=== PATIENT | female | born 1985 | race Caucasian/White ===

== ENCOUNTER 2017-09-02 13:06 | Emergency (ER) | payer SELFPAY ==
[2017-09-02 13:29] VITALS: BMI 30.8
--- NOTE | 2017-09-02 13:38 | OBHP ---
Datetime: 09/02/2017 13:29 IP Adm Impression: , intrauterine ; No Active Labor IP Chief Complaint Other: uriary frequency, dysuria and vulvar irirtation IP Adm Impression Other: uti; vulvar candidiasis IP Admit Plan: Discharge home Admit Comment, IP Provider: chief complaint-dysuria, urinary frequency, vulvar itching HPI 32 y/o at 27.2 wga , recently moved to [facility] 3 weeks ago, with c/o urinary frequency and dy suria since last night.Denies contractions, vaginal bleeidng or loss of fluid course- has not establsihed care in [place] PMH denies PSH denies OBGYN HX ; hx of ectopic Social hx denies tobacco,alcohol or illicit durg use Exam see exam section Abdomen +suprapubic tenderness; no cva tenderness bilaterally A/P 32 y/o at 27.2 wga with clinically UTI and superficial candidiasis -check UA -keflex and lotrsione establish care with obgyn michael Pelvic Type - PN: Adequate Extremities - PN: Normal Abdomen - PN: Normal Lungs - PN: Normal Heart - PN: Normal Neurologic - PN: Normal General - PN: Normal Contraction Comments Provider: occ Comments, ACOG Physical Exam: pelvic area-eyrthematous rash involving the labia vagina no lesions'cervix lose duterus gravid and no fundal tenderness noted Gestation - Est Wks by US: 27.2 IP Hx Assessment: The History has been Reviewed and is Current Vital Signs Provider: Reviewed Vital Signs Provider Details: temp 98.3F; pulse 80; bp 120/69 IP Chief Complaint: Other FHR Category Provider Fetus A: Category I Dilatation, Provider: 0 Effacement, Provider: 30 Station, Provider: -3 Genitourinary Exam: Abnormal DTRs - PN: Normal
[2017-09-02 14:12] LABS: RBC URINE 22 /hpf (0-3); URINE BACTERIA OCC (<OCC); URINE BILIRUBIN NEGATIVE (NEGATIVE); URINE BLOOD 2+ (NEGATIVE); URINE COLOR Yellow (YELLOW); URINE GLUCOSE (UA) NORMAL (Normal); URINE KETONE TRACE mg/dL (NEGATIVE); URINE LEUKOCYTE ESTERASE 2+ Leu/uL (Negative); URINE PROTEIN NEGATIVE (NEGATIVE); URINE UROBILINOGEN NORMAL mg/dL (0.2-1.0); WBC URINE 27 /hpf (0-5)
[2017-09-02 18:37] VITALS: BP 120/69; PULSE 80; RESP 18; TEMP 98.3
== END 2017-09-02 14:35 | disposition home or self-care (01) ==
LOC: C.EROB 13:06
DX: O23.42 Unspecified infection of urinary tract in pregnancy, second trimester (principal); O98.812 Other maternal infectious and parasitic diseases complicating pregnancy, second trimester; B37.3 Candidiasis of vulva and vagina; Z3A.27 27 weeks gestation of pregnancy

== ENCOUNTER 2017-11-21 14:31 | Emergency (ER) | payer SELFPAY ==
--- NOTE | 2017-11-21 15:40 | OBHP ---
Datetime: 11/21/2017 15:32 IP Adm Impression: Term, intrauterine ; No Active Labor IP Admit Plan: Discharge home Admit Comment, IP Provider: chief complaint-contractions HPI 32 y/o at 38.5 wga by LMP with c/o ctx since 1 2pm.Also noticed some blood mixed with muc us.Feels then recurrently.Katie is crampy in nature and she feels it is worsening Did not get prenatl care in [place] Had care in [facility] course -saw an OBGYN in [facility].LAST VISIT 3 MONTHS AGO PMH denies PSH rt oophorectomy OBGYN HX ; Hx of ectopic in jul 2016.was 4 weeks.had oophorectomy for the ectopic menrache age 11 no hx of sti or fibroids Social hx denies tobacco,alochol or illcit drug use Family hx father with pancreatic cancer, decased at age 52; mother -alive 62y/o, has diabtes Exam see exam section A/P 32 y/o at 38.5 wga in early labor.Patient appears comfortable. and maternal status r easusirng -patient discharged home -return if and when ctx get stronger, leaking of fluid, decreased movement, heavy bleeding h appens or any other problems arise Pelvic Type - PN: Adequate Extremities - PN: Normal Abdomen - PN: Normal Lungs - PN: Normal Heart - PN: Normal Neurologic - PN: Normal General - PN: Normal Contraction Comments Provider: irregular Gestation - Est Wks by US: 38.5 EGA AdmitDate IP: 38.5 Vital Signs Provider: Reviewed IP Chief Complaint: Uterine contractions FHR Category Provider Fetus A: Category I Dilatation, Provider: 1 Effacement, Provider: 50 Station, Provider: -2 Genitourinary Exam: Normal
[2017-11-21 20:03] VITALS: BP 139/87; PULSE 85; RESP 18; O2SAT 99
== END 2017-11-21 15:40 | disposition home or self-care (01) ==
LOC: C.EROB 14:31
DX: O47.1 False labor at or after 37 completed weeks of gestation (principal); Z3A.38 38 weeks gestation of pregnancy

== ENCOUNTER 2017-11-21 22:14 | Inpatient (IN) | payer MEDICAID ==
[2017-11-21] MEDS: Lactated Ringer's 1,000 ML IV SCH (22:20)
[2017-11-21] MEDS ORDERED: Penicillin G 5 Million Unit Vial IVPB ONE ×2 (22:25→23:08)
[2017-11-21 22:26] VITALS: BMI 31.6
--- NOTE | 2017-11-21 22:35 | OBHP ---
Datetime: 11/21/2017 22:29 IP Adm Impression: Term, intrauterine ; Active labor IP Admit Plan: Admit to unit; Initiate labor protocol Admit Comment, IP Provider: HPI chief complaint-contractions HPI 32 y/o at 38.5 wga by LMP with c/o ctx since 1 2pm.Patient was seen earlier and discharge d home.She states that ctx got stronger and hence she retirned. Did not get prenatl care in [place] Had care in [facility] course -saw an OBGYN in [facility]LAST VISIT 3 MONTHS AGO PMH denies PSH rt oophorectomy OBGYN HX ; Hx of ectopic in jul 2016.was 4 weeks.had oophorectomy for the ectopic menrache age 11 no hx of sti or fibroids Social hx denies tobacco,alochol or illcit drug use Family hx father with pancreatic cancer, decased at age 52; mother -alive 62y/o, has diabtes Exam see exam section A/P 32 y/o at 38.5 wga in labor. GBS unknown.no care in [place] -admit -see orders Pelvic Type - PN: Adequate Extremities - PN: Normal Abdomen - PN: Normal Back - PN: Normal Lungs - PN: Normal Heart - PN: Normal General - PN: Normal Weight - Estimated: 3200 Presentation-Admit: Vertex Contraction Comments Provider: every 2-3min Gestation - Est Wks by US: 38.0 IP Hx Assessment: The History has been Reviewed and is Current EGA AdmitDate IP: 38.5 Vital Signs Provider: Reviewed; Within Normal Limits IP Chief Complaint: Uterine contractions FHR Category Provider Fetus A: Category I Dilatation, Provider: 5 Effacement, Provider: 90 Station, Provider: -2 Genitourinary Exam: Normal DTRs - PN: Normal
--- NOTE | 2017-11-21 22:43 | OBADHP ---
Datetime: 11/21/2017 22:29 Admit Comment, IP Provider: HPI chief complaint-contractions HPI 32 y/o at 38.5 wga by LMP with c/o ctx since 1 2pm.Patient was seen earlier and discharge d home.She states that ctx got stronger and hence she retirned. Did not get prenatl care in [place] Had care in [facility] course -saw an OBGYN in [facility].LAST VISIT 3 MONTHS AGO PMH denies PSH rt oophorectomy OBGYN HX ; Hx of ectopic in jul 2016.was 4 weeks.had oophorectomy for the ectopic menrache age 11 no hx of sti or fibroids Social hx denies tobacco,alochol or illcit drug use Family hx father with pancreatic cancer, decased at age 52; mother -alive 62y/o, has diabtes Exam see exam section A/P 32 y/o at 38.5 wga in labor. GBS unknown.no care in [place] -admit -see orders Pelvic Type - PN: Adequate Extremities - PN: Normal Abdomen - PN: Normal Back - PN: Normal Lungs - PN: Normal Heart - PN: Normal General - PN: Normal Weight - Estimated: 3200 Presentation-Admit: Vertex Contraction Comments Provider: every 2-3min Gestation - Est Wks by US: 38.0 IP Hx Assessment: The History has been Reviewed and is Current Vital Signs Provider: Reviewed; Within Normal Limits IP Chief Complaint: Uterine contractions FHR Category Provider Fetus A: Category I Dilatation, Provider: 5 Effacement, Provider: 90 Station, Provider: -2 Genitourinary Exam: Normal DTRs - PN: Normal EGA AdmitDate IP: 38.5 IP Adm Impression: Term, intrauterine ; Active labor IP Admit Plan: Admit to unit; Initiate labor protocol Datetime: 11/21/2017 15:32 Neurologic - PN: Normal Datetime: 09/02/2017 13:29 IP Chief Complaint Other: uriary frequency, dysuria and vulvar irirtation IP Adm Impression Other: uti; vulvar candidiasis Comments, ACOG Physical Exam: pelvic area-eyrthematous rash involving the labia vagina no lesions'cervix lose duterus gravid and no fundal tenderness noted Vital Signs Provider Details: temp 98.3F; pulse 80; bp 120/69
[2017-11-21 22:51] LABS: BASO # 0.1 K/uL (0.0-0.2); BASO % 0.5 % (0.0-2.0); EOS % 0.2 % (0.0-4.0); HEMOGLOBIN 12.1 g/dL (11.0-16.0); LYMPH # 1.6 K/uL (1.0-4.3); LYMPH % 10.9 % (20.0-40.0); MEAN CELL VOLUME 88.3 fL (81.0-99.0); MEAN CORPUSCULAR HEMOGLOBIN 30.5 pg (27.0-31.0); MEAN CORPUSCULAR HGB CONC 34.6 g/dL (33.0-37.0); MEAN PLATELET VOLUME 11.4 fL (7.2-11.7); MONO # 0.8 K/uL (0.0-0.8); MONO % 5.1 % (0.0-10.0); NEUT # 12.3 K/uL (1.8-7.0); NEUT % 83.3 % (50.0-75.0); RBC 3.97 Mil/uL (3.80-5.20); RED CELL DISTRIBUTION WIDTH 13.6 % (11.5-14.5); WHITE BLOOD COUNT 14.7 K/uL (4.8-10.8)
[2017-11-21 22:55] LABS: SQUAMOUS EPITHIAL 7 /hpf (0-5); URINE BILIRUBIN NEGATIVE (NEGATIVE); URINE BLOOD 3+ (NEGATIVE); URINE CLARITY Hazy (Clear); URINE COLOR Yellow (YELLOW); URINE GLUCOSE (UA) NORMAL (Normal); URINE LEUKOCYTE ESTERASE TRACE Leu/uL (Negative); URINE NITRATE NEGATIVE (NEGATIVE); URINE PROTEIN NEGATIVE (NEGATIVE); URINE UROBILINOGEN NORMAL mg/dL (0.2-1.0)
[2017-11-21 23:05] LABS: ALB/GLOB RATIO 0.9 (1.0-2.1); ALBUMIN 3.3 g/dL (3.5-5.0); CALCIUM 9.1 mg/dl (8.6-10.4); GFR AFRICAN-AMERICAN > 60; GFR NON-AFRICAN AMERICAN > 60
[2017-11-21 23:22] LABS: ALT/SGPT 19 U/L (9-52); AST/SGOT 29 U/L (14-36); BLOOD UREA NITROGEN 3 mg/dL (7-17)
[2017-11-21 23:35] LABS: HEPATITIS B SURFACE AG Negative (NEGATIVE)
[2017-11-22] MEDS ORDERED: Fentanyl/Bupivacaine HCl 250 ML EPI ONE (00:08)
[2017-11-22] MEDS: Lactated Ringer's 1,000 ML IV SCH (03:00)
--- NOTE | 2017-11-22 06:59 | OBPN ---
Datetime: 11/22/2017 06:50 IP Progress Impression: Reassuring heart rate IP Procedures: Artificial ROM; Sterile Vag Exam IP Progress Plan: Continue present management Contraction Comments Provider: every 3 min IP Progress Note Comment: S-patient cofmortable with epidural.Denies nausea, vomiting, headache, mike st pain,shortness of breath O-VS bp 152/96 FHT cat1 Tooc ctx q 2-3min sve 9/100/-1 A/P Patient in labor at 38.6wga.arom done.clear fluid.gbs unknown.on pen G. -Monitor bp closely and for sign and symptoms of pre-eclampsia -anticipate nvd Vital Signs Provider: Reviewed FHR Category Provider Fetus A: Category I Dilatation, Provider: 9 Effacement, Provider: 100 Station, Provider: -1 Datetime: 11/21/2017 22:29 Gestation - Est Wks by US: 38.0 Weight - Estimated: 3200 Presentation-Admit: Vertex Datetime: 09/02/2017 13:29 Vital Signs Provider Details: temp 98.3F; pulse 80; bp 120/69
[2017-11-22] MEDS ORDERED: Oxytocin 30 UNIT 30 UNITS/500 ML BAG IV PRN (07:08)
[2017-11-22] MEDS ORDERED: Oxycodone/Acetaminophen 5/325 mg Tab PO PRN ×2 (09:34)
[2017-11-22] MEDS ORDERED: Benzocaine/Menthol 20%-0.5% Topical Spray (60 ml) TOP PRN (09:34)
--- NOTE | 2017-11-22 10:03 | OBDS ---
DELIVERY PERSONNEL Delivery Doctor: Cesar Alfredo MD Banking Paralegal: Corazon Jack RN Anesthesiologist: rose MATERNAL INFORMATION Delivery Anesthesia: Epidural Medications in Delivery: pitocin 20 Maternal Complications: None Provider Comments: baby delivered in sara. end clean no com LABOR SUMMARY EDC: 11/30/2017 00:00 No. Babies in Womb: 1 Attempted: No LABOR INFORMATION Reason for Induction: Not Applicable Onset of Labor: 11/21/2017 20:00 Complete Dilatation: 11/22/2017 09:13 Oxytocin: Augmentation Group B Beta Strep: Not Done Antibiotics # of Doses: 3 Antibiotics Time of Last Dose: 716 MEMBRANES Membranes Rupture Method: Artificial Rupture of Membranes: 11/22/2017 06:49 Length of Rupture (hrs): 3.07 Amniotic Fluid Color: Clear Amniotic Fluid Amount: Moderate Amniotic Fluid Odor: Normal STAGES OF LABOR Stage 1 hrs: 13 Stage 1 min: 13 Stage 2 hrs: 0 Stage 2 min: 40 Stage 3 hrs: 0 Stage 3 min: 3 Total Time in Labor hrs: 13 Total Time in Labor min: 56 VAGINAL DELIVERY Laceration Extension: First Degree Laceration Type: Perineal Laceration Repair: Not Applicable Initial Vag Sponge Count: 10 Final Vag Sponge Count: 10 Initial Vag Sharps Count: 1 Final Vag Sharps Count: 1 Sponge Count Correct: Yes Sharps Count Correct: Yes BABY A INFORMATION Infant Delivery Date/Time: 11/22/2017 09:53 Method of Delivery: Vaginal Born in Route : No : N/A Forceps: N/A Vacuum Extraction: N/A Shoulder Dystocia : No SHOULDER DYSTOCIA BABY A Delivery Date/Time: 11/22/2017 09:53 PRESENTATION/POSITION BABY A Presentation: Cephalic Cephalic Presentation: Vertex Vertex Position: Right Occipital Anterior Breech Presentation: N/A PLACENTA INFORMATION BABY A Placenta Delivery Time : 11/22/2017 09:56 Placenta Status: Delivered SCORES BABY A Heart Rate 1 min: >100 bpm Resp Effort 1 min: Good Cry Reflex Irritability 1 min: Cough or Sneeze or Pulls Away Muscle Tone 1 min: Active Motion Color 1 min: Body [place], Extremities Blue Resuscitation Effort 1 min: Tactile Stimulation SCORE 1 MIN: 9 Heart Rate 5 min: >100 bpm Resp Effort 5 min: Good Cry Reflex Irritability 5 min: Cough or Sneeze or Pulls Away Muscle Tone 5 min: Active Motion Color 5 min: Body [place], Extremities Blue SCORE 5 MIN: 9 INFANT INFORMATION BABY A Gestational Age at Delivery: 38.6 Gestational Status: Term Outcome : Liveborn Infant Condition : Stable Infant Sex: Female IDENTIFICATION/MEDS BABY A ID Band Number: [id number] ID Band Location: Left Leg; Left Arm Sensor Applied: Yes Sensor Number: [id number] Sensor Location : Cord Clamp WEIGHT/LENGTH BABY A Birthweight (gms): 3160 Weight (lb): 6 Infant Weight (oz): 15 Length Inches: 19.50 Infant Length cms: 49.5 CORD INFORMATION BABY A No. Cord Vessels: 3 Nuchal Cord : N/A Cord Blood Taken: Yes Infant Suction: Mouth; Nose ASSESSMENT BABY A Infant Complications: None Physical Findings at Delivery: Within Normal Limits Infant Respirations: Appears Normal Auto Roller/ALS Called : No Care By: dr razo Transferred To: Remains with Mother
--- NOTE | 2017-11-23 07:43 | OBPPN ---
Datetime: 11/23/2017 07:40 PP Pain Prov: Within normal limits PP Nausea Prov: Denies PP Flatus Prov: Yes PP BM Prov: No PP Breasts Prov: Normal PP Heart Prov: Normal PP Lungs Prov: Normal PP Abdomen/Uterus Prov: Normal PP Lochia Prov: Normal PP Vulva/Perineum Prov: Normal PP CVA Tenderness Prov: Normal PP Extremities Prov: Normal PP C/S Incision Prov: Not Applicable PP Progress Prov: Normal PP Impression Prov: Normal progression PP Plan Prov: Continue present management PP Progress Note Prov: pt seen and examien reprot pain cotrolle with medicain, pt dneis any fever, h ills, nause, voting pt voidng without diffickty dneis any cp, sob, heavy bleeding _VSS PE see aove A?P s/p nsdv pp d #1 doignw ell f/u am cbc pain amennet encourahr breast feedign and ambaiton hx via interepter IP PP Procedures: None Vital Signs Provider PP: Reviewed; Within Normal Limits
[2017-11-23 08:18] LABS: HEMOGLOBIN 11.5 g/dL (11.0-16.0); MEAN CELL VOLUME 87.4 fL (81.0-99.0); MEAN CORPUSCULAR HEMOGLOBIN 31.1 pg (27.0-31.0); MEAN CORPUSCULAR HGB CONC 35.6 g/dL (33.0-37.0); MEAN PLATELET VOLUME 11.4 fL (7.2-11.7); RBC 3.68 Mil/uL (3.80-5.20); RED CELL DISTRIBUTION WIDTH 13.7 % (11.5-14.5); WHITE BLOOD COUNT 13.7 K/uL (4.8-10.8)
[2017-11-24 00:16] VITALS: TEMP 98.5
--- NOTE | 2017-11-24 21:23 | OBPPN ---
Datetime: 11/24/2017 07:40 PP Pain Prov: Within normal limits PP Nausea Prov: Denies PP Flatus Prov: Yes PP BM Prov: No PP Heart Prov: Normal PP Lungs Prov: Normal PP Abdomen/Uterus Prov: Normal PP Lochia Prov: Normal PP Extremities Prov: Normal PP Progress Prov: Normal PP Comments Phys Exam Prov: Abdomen: soft, mild tenderness, fundus firm at 1 fingerbreath below umbi licus PP Impression Prov: Normal progression PP Plan Prov: Discharge PP Progress Note Prov: Patient seen and examined at bedside and in no acute distress. Patient says s he has abdominal cramping with which she rates an 8/10 and can be as bad as a 10/10. Ar coello has not been taking her pain medications and was explained that she should take her medicine to prevent the pain from getting so high on the pain scale. Patient is only . Patient is t olerating diet well with no nausea or vomiting. Patient has had flatus, but no bowel movement. Rowena alba has decreased lochia and changed her pad 2 times overnight. VS: T:98.5 P: 65 BP:129/87 PE: Gen: NAD Heart: RRR, +S1, S2 Lungs: CTABL Abdomen: soft, mild tenderness, fundus firm at 1 fingerbreath below umbilicus Ext: no clubbing, edema, cyanosis A_P: 32 y/o F s/p with first degree perineal tear PPD #2 1. stable, afebrile 2. pain controlled with Motrin 3. continue ambulation and hydration 4. continue breast feeding 5. discharge home 6. discussed with Dr. Rodriguez Harman, PGY1 Attending Note: Patient seen by me with the Resident - I agree with the above as documented. Jen treviño is clinically stable for discharge. Vital Signs Provider PP: Reviewed
--- NOTE | 2017-11-24 21:23 | OBDCSUM ---
Datetime: 11/24/2017 10:00 Discharged to, Provider: home Follow up at, Provider: clinic Disch Instr Activity: Normal activity; May Shower Discharge Diagnosis, Provider: Term Delivered Follow up in weeks, Provider: 6 weeks Contraception discussed, Prov: No Disch Activity Restrictions: No sexual activity; Nothing in vagina - [place], tampons, douche Datetime: 11/21/2017 15:29 Follow up at, Provider: [facility] [place] Follow up in weeks, Provider: 01/03/18
[2017-11-24 22:56] VITALS: BP 134/84; PULSE 74; RESP 18; O2SAT 98
== END 2017-11-24 15:20 | disposition home or self-care (01) | DRG 775 ==
LOC: C.EROB 22:14 → C.4D 22:19 → C.4M 11-22 11:20
PROVIDERS: ADMIT Student in an Organized Health Care Education/Training Program; ATTEND Student in an Organized Health Care Education/Training Program
PROC: 10E0XZZ Delivery of Products of Conception, External Approach (ICD-10-PCS; principal; 2017-11-21)
PROC: 0HQ9XZZ Repair Perineum Skin, External Approach (ICD-10-PCS; 2017-11-21)
PROC: 10907ZC Drainage of Amniotic Fluid, Therapeutic from Products of Conception, Via Natural or Artificial Opening (ICD-10-PCS; 2017-11-21)
DX: O70.0 First degree perineal laceration during delivery (principal); Z37.0 Single live birth; Z3A.38 38 weeks gestation of pregnancy